=== PATIENT | female | born 1965 | race Caucasian/White ===

== ENCOUNTER 2018-11-06 09:22 | Emergency (ER) | payer BC ==
[2018-11-06] MEDS ORDERED: Meclizine TAB* 12.5 MG PO ONE (09:56)
--- NOTE | 2018-11-06 09:58 | ED ---
Dizziness - HPI Summary HPI Summary: Pt. is a 53 y.o female who presents to the ER for dizziness that started around 0700 today. Pt. notes she has been having intermittently issues with her left ear and a feeling of fullness and ringing in ear that she contributes to allergies. Pt. states she has been taking allergy medication which usually improves sxs. Pt. states she was driving today when she started experiencing dizziness and feeling the room was spinning. Pt. states she was gripping steering wheel tight and started feeling bilaterally arm numbness. She notes she was still holding onto the steering wheel and did not experience weakness. Pt. denies past medical hx. Sxs are moderate in severity. Movement makes sxs worse. Rest makes sxs better. Pt. initially went to for evaluation and was sent to ER for further evaluation. Pt. notes are numbness has resolved. - History Of Current Complaint Chief Complaint: EDDizziness Stated Complaint: LEFT EAR PAIN PER PT Time Seen by Provider: 11/06/18 09:39 Hx Obtained From: Patient - Allergies/Home Medications Allergies/Adverse Reactions: Allergies Allergy/AdvReac Type Severity Reaction Status Date / Time lactase [From Dairy [employer]] Allergy Nausea Verified 11/06/18 09:57 PMH/Surg Hx/FS Hx/Imm Hx Previously Healthy: Yes Infectious Disease History: No Infectious Disease History: Denies: Traveled Outside the [place] in Last 30 Days - Family History Known Family History: Positive: Cardiac Disease - grandparents - Social History Occupation: Employed Full-time Lives: With Family Alcohol Use: Occasionally Substance Use Type: Reports: None Smoking Status (MU): Never Smoked Tobacco Review of Systems Constitutional: Negative Negative: Fever, Chills Eyes: Negative Negative: Photophobia, Blurred Vision Positive: Other - left ear congestion Cardiovascular: Negative Negative: Palpitations, Chest Pain Respiratory: Negative Negative: Shortness Of Breath, Cough Positive: Nausea. Negative: Abdominal Pain, Vomiting Genitourinary: Negative Positive: Other - weakness in bilateral arms that has resolved. Positive: Weakness - weakness in bilateral arms that has resolved. . Negative: Headache, Paresthesia, Numbness, Syncope All Other Systems Reviewed And Are Negative: Yes Physical Exam Triage Information Reviewed: Yes Vital Signs On Initial Exam: Initial Vitals Temp Pulse Resp BP Pulse Ox 97.3 F 74 16 134/70 100 11/06/18 09:28 11/06/18 09:28 11/06/18 09:28 11/06/18 09:28 11/06/18 09:28 Vital Signs Reviewed: Yes Appearance: Positive: Well-Appearing - Pt. sitting up in bed in NAD. SO present. Skin: Positive: Warm, Dry Head/Face: Positive: Normal Head/Face Inspection Eyes: Positive: Normal, EOMI, BRANDEN, Conjunctiva Clear ENT: Positive: Pharynx normal, TMs normal. Negative: Tonsillar swelling, Tonsillar exudate Neck: Positive: Supple Respiratory/Lung Sounds: Positive: Clear to Auscultation, Breath Sounds Present Cardiovascular: Positive: Normal, RRR Musculoskeletal: Positive: Normal, Strength/ROM Intact Neurological: Positive: Normal, Sensory/Motor Intact, Alert, Oriented to Person Place, Time, CN Intact II-III, Heel to Toe - normal, Finger to Nose - normal, Facial Symmetry, Speech Normal. Negative: Cerebellar Dysfunction, Facial Droop , Slurred Speech, Pronator Drift Present Psychiatric: Positive: Affect/Mood Appropriate - Linda Coma Scale Best Eye Response: 4 - Spontaneous Best Motor Response: 6 - Obeys Commands Best Verbal Response: 5 - Oriented Coma Scale Total: 15 Diagnostics - Vital Signs Vital Signs Temp Pulse Resp BP Pulse Ox 11/06/18 09:28 97.3 F 74 16 134/70 100 - Laboratory Result Diagrams: 11/06/18 10:34 11/06/18 10:34 Lab Statement: Any lab studies that have been ordered have been reviewed, and results considered in the medical decision making process. Dizzy Course/Dx - Course Course Of Treatment: Pt. presenting after an episode of dizziness and bilateral arm numbness without weakness. Pt. contributed arm numbness to holding tightly onto steering wheel. Pt. has a hx of allergies and vertigo. NIHSS is 0. Exam is unremarkable. Brain Ct and labs ordered. Pt. given a dose of meclizine. Labs are unremarkable. Brain CT negative for acute findings. ECG done at 1001 shows a sinus rhythm of 75bpm, normal axis, no ST elevation or depression. On re- exam pt. is feeling much better and was able to ambulate to the bathroom and dizziness has resolved. Suspect dizziness is secondary to inner ear. Rx for flonase and meclizine given. Pt. to f.u with the [facility]. To return to ER if sxs change or worsen. Pt understands and agrees with plan. - Diagnoses Differential Diagnosis/HQI/PQRI: Anxiety, Benign Paroxysmal Positional Vertigo, CVA, Metabolic Abnormality, Transient Ischemic Attack Provider Diagnoses: Vertigo, Allergic rhinitis Discharge - Sign-Out/Discharge Documenting (check all that apply): Patient Departure Patient Received Moderate/Deep Sedation with Procedure: No - Discharge Plan Condition: Improved Disposition: HOME Prescriptions: Fluticasone NASAL SPRAY 50MCG* [Flonase NASAL SPRAY 50MCG*] 2 spray BOTH NARES DAILY #1 btl Meclizine TAB* [Antivert 12.5 TAB*] 25 mg PO TID #20 tab Patient Education Materials: Dizziness (ED) Referrals: [facility] [Outside] [facility] [Outside] Additional Instructions: Follow up with the [facility] if symptoms persist Medication as directed Return to ER if symptoms change or worsen - Billing Disposition and Condition Condition: IMPROVED Disposition: Home
[2018-11-06 10:56] LABS: ABS Lymphocytes 0.6 10^3/ul (1.0-4.8); ABS Monocytes 0.2 10^3/ul (0-0.8); ABS Neutrophils 6.1 10^3/ul (1.5-7.7); Eosinophil % 0.1 %; Hematocrit 41 % (35-47); Hemoglobin 13.7 g/dL (12.0-16.0); Lymphocyte % 8.5 %; Mean Corpuscular HGB Conc 33 g/dL (31-36); Mean Corpuscular Hemoglobin 29 pg (27-31); Mean Corpuscular Volume 88 fL (80-97); Mean Platelet Volume 7.7 fL (7.4-10.4); Platelet Count 268 10^3/uL (150-450); Red Blood Count 4.66 10^6 /uL (3.70-4.87); Red Cell Distribution Width 13 % (10-15); White Blood Count 6.9 10^3/uL (3.5-10.8)
[2018-11-06 11:01] LABS: Albumin 4.5 g/dL (3.2-5.2); Albumin/Globulin Ratio 1.4 (1-3); BUN/Creatinine Ratio 26.5 (8-20); Calcium 9.9 mg/dL (8.6-10.3); EGFR African American 109.5 (>60); EGFR Non-African American 90.5 (>60); Globulin 3.2 g/dL (2-4); Potassium 3.7 mmol/L (3.5-5.0); Total Bilirubin 0.4 mg/dL (0.2-1.0); Total Protein 7.7 g/dL (6.4-8.9)
[2018-11-06 11:26] LABS: TSH (Thyroid Stimulating Horm) 0.84 mcIU/mL (0.34-5.60)
[2018-11-06 12:40] VITALS: BP 113/71
== END 2018-11-06 12:39 | disposition home or self-care (01) ==
LOC: ED 09:22
DX: R42 Dizziness and giddiness (principal); J30.9 Allergic rhinitis, unspecified; R20.0 Anesthesia of skin; Z91.011 Allergy to milk products
CPT/HCPCS: 36415; 70450; 80053; 83735; 84443; 84484; 85025; 93005; 99282; A9270-GY